=== PATIENT | male | born 1970 | race Two or more races ===

== ENCOUNTER 2019-06-14 14:23 | Inpatient (IN) | payer MEDICAID ==
[~2019-06-14] VITALS: Ht 170.2 cm; Wt 59.2 kg
[2019-06-14] MEDS ORDERED: PANTOPRAZOLE SODIUM 40 MG/VIAL IV STA ×2 (15:33→20:58)
[2019-06-14] MEDS ORDERED: ONDANSETRON HCL 4MG/2ML INJ IV STA (15:33)
[2019-06-14] MEDS ORDERED: SODIUM CHLORIDE 0.9% 1000ML BAG (SEPSIS BOLUS) IV ONE (15:45)
[2019-06-14 15:57] LABS: BASOPHILS % 0.2 % (0.0-2.0); HEMATOCRIT. 30.5 % (42.0-52.0); HEMOGLOBIN. 10.7 g/dL (14.0-18.0); LYMPHOCYTES % 13.9 % (20.0-50.0); MEAN CORPUSCULAR HEMOGLOBIN 35.2 pg (28.0-32.0); MEAN PLATELET VOLUME 8.5 fl (7.4-10.4); MONOCYTES % 8.5 % (2.0-8.0); NEUTROPHILS % 77.4 % (40.0-76.0); PLATELET 217 x1000/uL (130-400); RED BLOOD CELL COUNT 3.05 mill/uL (4.7-6.1)
[2019-06-14 15:59] LABS: CHLORIDE 92 mEq/L (98-107)
[2019-06-14 16:02] LABS: INR 1.2; PROTHROMBIN TIME 12.1 sec (9.6-11.0)
[2019-06-14] MEDS ORDERED: SODIUM CHLORIDE 0.9% 1,000 ML IV ONE (19:30)
[2019-06-14 19:51] LABS: MEAN CORPUSCULAR HEMOGLOBIN 35.8 pg (28.0-32.0); MEAN CORPUSCULAR VOLUME 100.5 fL (80.0-94.0); PLATELET 143 x1000/uL (130-400); RED BLOOD CELL COUNT 1.93 mill/uL (4.7-6.1); RED CELL DISTRIBUTION WIDTH 13.9 % (11.6-14.6)
[2019-06-14 19:52] LABS: HEMATOCRIT 19.4 % (42.0-52.0); HEMOGLOBIN 6.9 g/dL (14.0-18.0)
[2019-06-14] MEDS ORDERED: PANTOPRAZOLE 80 MG in SODIUM CHLORIDE 0.9% 100 ML IV STA (20:58)
[2019-06-14] MEDS ORDERED: DIPHENHYDRAMINE 50MG/ML VIAL IV PRN (22:15)
[2019-06-14] MEDS ORDERED: ONDANSETRON HCL 4MG/2ML INJ IV PRN (22:15)
[2019-06-14] MEDS ORDERED: IPRATROPIUM/ALBUTEROL 0.5-3(2.5)MG/3ML NEB NEB PRN (22:15)
[2019-06-14] MEDS ORDERED: DOCUSATE SODIUM 100MG CAPSULE PO PRN (22:15)
[2019-06-14] MEDS ORDERED: GUAIFENESIN 200MG/10ML SUGAR FREE UDC PO PRN (22:15)
[2019-06-14] MEDS ORDERED: ACETAMINOPHEN 650MG SUPP PR PRN (22:15)
[2019-06-14 22:40] LABS: *AMPHETAMINES SCREEN URINE NEGATIVE (NEGATIVE); *BARBITURATES SCREEN URINE NEGATIVE (NEGATIVE); METHADONE URINE SCREEN NEGATIVE (NEGATIVE); OPIATES URINE SCREEN NEGATIVE (NEGATIVE); PHENCYCLIDINE URINE SCREEN NEGATIVE (NEGATIVE)
[2019-06-14 22:41] LABS: *BENZODIAZEPINES SCREEN URINE NEGATIVE (NEGATIVE); *COCAINE SCREEN URINE NEGATIVE (NEGATIVE); CANNABINOID URINE SCREEN NEGATIVE (NEGATIVE)
[2019-06-15] VITALS (22 sets, daily range): BP systolic 100–143; BP diastolic 51–78
[2019-06-15] MEDS ORDERED: PANTOPRAZOLE 80 MG in SODIUM CHLORIDE 0.9% 100 ML IV SCH (02:00)
[2019-06-15] MEDS ORDERED: MVI, ADULT NO.1 10 ML, FOLIC ACID 1 MG, THIAMINE HCL 100 MG in SODIUM CHLORIDE 0.9% 1,0... IV SCH ×4 (02:00)
[2019-06-15] MEDS ORDERED: OCTREOTIDE 1,000 MCG in SODIUM CHLORIDE 0.9% 100 ML IV ONE ×4 (02:00)
[2019-06-15] MEDS ORDERED: OCTREOTIDE 1,000 MCG in SODIUM CHLORIDE 0.9% 100 ML IV SCH (02:00)
[2019-06-15] MEDS: PANTOPRAZOLE 80 MG in SODIUM CHLORIDE 0.9% 100 ML IV SCH ×2 (02:08→12:00)
[2019-06-15] MEDS: DEXT 5%/LACTATED RINGERS 1,000 ML IV SCH ×2 (02:34→15:20)
[2019-06-15] MEDS ORDERED: DEXTROSE 50% WATER 50ML SYRINGE IV PRN (10:15)
[2019-06-15] MEDS: BLOOD SUGAR DIAGNOSTIC STRIP TEST SCH ×3 (12:31→20:55)
[2019-06-15 12:57] LABS: HEMATOCRIT 27.2 % (42.0-52.0); HEMOGLOBIN 9.4 g/dL (14.0-18.0); MEAN CORPUSCULAR HEMOGLOBIN 33.4 pg (28.0-32.0); MEAN CORPUSCULAR VOLUME 96.4 fL (80.0-94.0); PLATELET 109 x1000/uL (130-400); RED BLOOD CELL COUNT 2.83 mill/uL (4.7-6.1); RED CELL DISTRIBUTION WIDTH 17.6 % (11.6-14.6)
[2019-06-15 13:10] LABS: CHLORIDE 109 mEq/L (98-107)
[2019-06-15] MEDS: INSULIN LISPRO 100 UNITS/ML SUBCUT SCH ×3 (13:27→20:50)
[2019-06-15 14:07] LABS: BASOPHILS % 0.3 % (0.0-2.0); EOSINOPHILS % 0.1 % (0.0-5.0); HEMOGLOBIN. 9.3 g/dL (14.0-18.0); LYMPHOCYTES % 15.7 % (20.0-50.0); MEAN CORPUSCULAR HEMOGLOBIN 33.1 pg (28.0-32.0); MEAN CORPUSCULAR VOLUME 96.6 fL (80.0-94.0); MEAN PLATELET VOLUME 8.2 fl (7.4-10.4); NEUTROPHILS % 74.9 % (40.0-76.0); PLATELET 109 x1000/uL (130-400); RED CELL DISTRIBUTION WIDTH 17.6 % (11.6-14.6)
[2019-06-15] MEDS: PANTOPRAZOLE SODIUM 40 MG/VIAL IV SCH (17:24)
[2019-06-15] MEDS ORDERED: LACTULOSE 20G/30ML UDC PO NR (17:45)
[2019-06-15] MEDS ORDERED: OCTREOTIDE 1,000 MCG in SODIUM CHLORIDE 0.9% 98 ML IV SCH (19:00)
[2019-06-16] VITALS (14 sets, daily range): BP systolic 104–132; BP diastolic 45–71
[2019-06-16] MEDS: DEXT 5%/LACTATED RINGERS 1,000 ML IV SCH ×2 (01:48→18:36)
[2019-06-16] MEDS: BLOOD SUGAR DIAGNOSTIC STRIP TEST SCH ×4 (07:47→21:17)
[2019-06-16 08:11] LABS: BASOPHILS % 0.5 % (0.0-2.0); EOSINOPHILS % 0.6 % (0.0-5.0); HEMATOCRIT. 25.2 % (42.0-52.0); HEMOGLOBIN. 8.9 g/dL (14.0-18.0); LYMPHOCYTES % 22.6 % (20.0-50.0); MEAN CORPUSCULAR VOLUME 96.6 fL (80.0-94.0); MEAN PLATELET VOLUME 7.7 fl (7.4-10.4); MONOCYTES % 7.9 % (2.0-8.0); NEUTROPHILS % 68.4 % (40.0-76.0); PLATELET 83 x1000/uL (130-400); RED BLOOD CELL COUNT 2.61 mill/uL (4.7-6.1); RED CELL DISTRIBUTION WIDTH 17.6 % (11.6-14.6)
[2019-06-16] MEDS: INSULIN LISPRO 100 UNITS/ML SUBCUT SCH ×4 (08:35→21:31)
[2019-06-16] MEDS: PANTOPRAZOLE SODIUM 40 MG/VIAL IV SCH ×2 (09:10→17:35)
[2019-06-16 09:38] LABS: CHLORIDE 105 mEq/L (98-107)
[2019-06-16 09:43] LABS: TOTAL IRON BINDING CAPACITY 217 ug/dL (250-450)
[2019-06-16 10:55] LABS: VITAMIN B12 SERUM > 2000.0 pg/mL (211-911)
[2019-06-16] MEDS ORDERED: KCL 20MEQ/100ML PREMIX 100 ML IV NR (12:00)
[2019-06-16 12:30] LABS: FERRITIN 496 ng/mL (22-322)
[2019-06-16 12:41] LABS: HEPATITIS B SURFACE ANTIGEN NEGATIVE
[2019-06-16] MEDS: LACTULOSE 20G/30ML UDC PO SCH ×3 (14:48→23:14)
[2019-06-16 16:40] LABS: HEPATITIS A AB IGM NEGATIVE (NEGATIVE)
[2019-06-17] VITALS (9 sets, daily range): BP systolic 123–140; BP diastolic 62–81
[2019-06-17] MEDS: LACTULOSE 20G/30ML UDC PO SCH ×2 (05:12→11:50)
[2019-06-17 06:11] LABS: BASOPHILS % 0.4 % (0.0-2.0); EOSINOPHILS % 0.7 % (0.0-5.0); HEMATOCRIT. 26.3 % (42.0-52.0); HEMOGLOBIN. 9.2 g/dL (14.0-18.0); LYMPHOCYTES % 19.1 % (20.0-50.0); MEAN CORPUSCULAR HEMOGLOBIN 33.8 pg (28.0-32.0); MEAN CORPUSCULAR VOLUME 96.4 fL (80.0-94.0); MONOCYTES % 7.4 % (2.0-8.0); NEUTROPHILS % 72.4 % (40.0-76.0); PLATELET 91 x1000/uL (130-400); RED BLOOD CELL COUNT 2.72 mill/uL (4.7-6.1); RED CELL DISTRIBUTION WIDTH 17.7 % (11.6-14.6)
[2019-06-17] MEDS: DEXT 5%/LACTATED RINGERS 1,000 ML IV SCH (06:28)
[2019-06-17 06:51] LABS: CHLORIDE 105 mEq/L (98-107)
[2019-06-17] MEDS: BLOOD SUGAR DIAGNOSTIC STRIP TEST SCH ×2 (08:28→11:34)
[2019-06-17] MEDS: INSULIN LISPRO 100 UNITS/ML SUBCUT SCH ×2 (09:04→12:39)
[2019-06-17] MEDS: PANTOPRAZOLE SODIUM 40 MG/VIAL IV SCH (09:05)
[2019-06-17] MEDS ORDERED: HYDROCODONE/ACETAMINOPHEN 5/325MG TABLET PO SCH (09:15)
[2019-06-17] MEDS ORDERED: SIMETHICONE 40 MG/0.6 ML 30ML ONE (14:01)
[2019-06-17] MEDS ORDERED: MIDAZOLAM HCL 5 MG/5 ML VIAL ONE (14:01)
[2019-06-17] MEDS ORDERED: FENTANYL CITRATE/PF 50MCG/ML 2ML VIAL ONE (14:01)
[2019-06-17] MEDS ORDERED: FENTANYL CITRATE/PF 50MCG/ML 2ML VIAL IV NR (14:06)
[2019-06-17] MEDS ORDERED: MIDAZOLAM HCL 5 MG/5 ML VIAL IV PRN (14:45)
== END 2019-06-17 17:15 | disposition home or self-care (01) | DRG 242 ==
LOC: ER 14:23 → 5EST 21:54 → ENRESERV 23:50
PROVIDERS: ADMIT Internal Medicine; ATTEND Internal Medicine
PROC: 30233N1 Transfusion of Nonautologous Red Blood Cells into Peripheral Vein, Percutaneous Approach (ICD-10-PCS; 2019-06-15)
PROC: 06L38CZ Occlusion of Esophageal Vein with Extraluminal Device, Via Natural or Artificial Opening Endoscopic (ICD-10-PCS; principal; 2019-06-17)
DX: I85.00 Esophageal varices without bleeding (principal); D69.6 Thrombocytopenia, unspecified; E72.20 Disorder of urea cycle metabolism, unspecified; E11.65 Type 2 diabetes mellitus with hyperglycemia; E87.1 Hypo-osmolality and hyponatremia; D62 Acute posthemorrhagic anemia; K92.0 Hematemesis; K76.6 Portal hypertension; D53.9 Nutritional anemia, unspecified; I10 Essential (primary) hypertension; K29.20 Alcoholic gastritis without bleeding; F10.20 Alcohol dependence, uncomplicated; K21.9 Gastro-esophageal reflux disease without esophagitis; K31.89 Other diseases of stomach and duodenum; K76.0 Fatty (change of) liver, not elsewhere classified; Z79.4 Long term (current) use of insulin; Z91.14 Patient's other noncompliance with medication regimen; Z71.41 Alcohol abuse counseling and surveillance of alcoholic
CPT/HCPCS: 36415; 71045; 76700; 80048; 80076; 80305; 82140; 82607; 82728; 82962; 83036; 83540; 83550; 83735; 85027; 86705; 86709; 86803; 86850; 86900; 86920; 87340; 93970; 96361; 96374; 96375; 99285; C9113; J1815; J2250; J2354; J2405; J3010; J3411; J3480; J3490; J7030; J7050; P9016